=== PATIENT | male | born 1955 | race African-American/Black ===

== ENCOUNTER 2021-12-12 10:32 | Outpatient (REF) | payer MEDICARE, OTHER, SELFPAY ==
[2021-12-12 11:24] LABS: Basophils Percent Auto 0.4 % (0-2); Eosinophils Absolute Auto 0.2 X10*3/uL (0.0-0.4); Eosinophils Percent Auto 2.7 % (0-4); Hemoglobin 12.7 g/dl (14.0-18.0); Imm Gran Abs Auto 0.05 X10*3/uL (0.00-0.03); Imm Gran Pct Auto 0.7 % (0.0-0.4); Lymphocytes Percent Auto 13.9 % (20-40); MANUAL DIFF FLAG SCAN; Mean Corpuscular HGB Conc 30.2 g/dl (31.0-36.0); Mean Corpuscular Hemoglobin 25.7 pg (27.0-33.0); Mean Platelet Volume 9.3 fL (9.4-12.4); Monocytes Absolute Auto 0.6 X10*3/uL (0.1-1.2); Monocytes Percent Auto 8.7 % (2-11); Neutrophils Absolute Auto 5.2 x10*3/uL (2.0-8.3); Neutrophils Percent Auto 73.6 % (45-73); PLT CLUMP 1; Red Blood Count 4.94 X10*6/uL (4.60-5.80); SCAN SMEAR FLAG 1
[2021-12-12 12:07] LABS: Alanine Aminotransferase 28 U/L (0-40); Aspartate Amino Transferase 27 U/L (5-37); Estimated Glomerular Filt Rate > 60
[2021-12-12 12:16] LABS: Platelet Count 244 X10*3/uL (160-400); SLIDE REVIEW VERIFIED; White Blood Count 7.1 X10*3/uL (4.8-10.8)
[2021-12-12 15:00] LABS: Erythrocyte Sedimentation Rate 21 MM/HR (0-15)
== END 2021-12-12 10:33 | disposition home or self-care (01) ==
LOC: HO.LAB 10:32
PROVIDERS: PCP Internal Medicine; Visit Provider Internal Medicine Rheumatology
DX: M05.9 Rheumatoid arthritis with rheumatoid factor, unspecified (principal); Z79.899 Other long term (current) drug therapy
CPT/HCPCS: 36415; 82565; 84450; 84460; 85025; 85652; 86140

== ENCOUNTER 2022-05-03 11:29 | Outpatient (REF) | payer MEDICARE, OTHER, SELFPAY ==
[2022-05-03 13:41] LABS: MANUAL DIFF FLAG NO
[2022-05-03 13:55] LABS: Basophils Percent Auto 0.9 % (0-2); Eosinophils Absolute Auto 0.1 X10*3/uL (0.0-0.4); Eosinophils Percent Auto 2.8 % (0-4); Hematocrit 41.4 % (42.0-52.0); Hemoglobin 12.8 g/dl (14.0-18.0); Imm Gran Abs Auto 0.05 X10*3/uL (0.00-0.03); Imm Gran Pct Auto 1.1 % (0.0-0.4); Lymphocytes Absolute Auto 0.9 X10*3/uL (1.2-4.9); Lymphocytes Percent Auto 20.6 % (20-40); Mean Corpuscular HGB Conc 30.9 g/dl (31.0-36.0); Mean Corpuscular Hemoglobin 26.3 pg (27.0-33.0); Mean Platelet Volume 9.8 fL (9.4-12.4); Monocytes Absolute Auto 0.5 X10*3/uL (0.1-1.2); Monocytes Percent Auto 11.6 % (2-11); Neutrophils Absolute Auto 2.9 x10*3/uL (2.0-8.3); Platelet Count 190 X10*3/uL (160-400); Red Blood Count 4.87 X10*6/uL (4.60-5.80); Red Cell Distribution Width 16.9 % (11.0-16.0); White Blood Count 4.6 X10*3/uL (4.8-10.8)
[2022-05-03 14:50] LABS: Alanine Aminotransferase 22 U/L (0-40); Aspartate Amino Transferase 25 U/L (5-37); C Reactive Protein 0.21 mg/dL (< or = 0.50); Estimated Glomerular Filt Rate > 60
[2022-05-03 15:03] LABS: Erythrocyte Sedimentation Rate 12 MM/HR (0-15)
== END 2022-05-03 11:30 | disposition home or self-care (01) ==
LOC: HO.10HDL 11:29
PROVIDERS: Visit Provider Internal Medicine Rheumatology
DX: M05.9 Rheumatoid arthritis with rheumatoid factor, unspecified (principal); R62.50 Unspecified lack of expected normal physiological development in childhood; Z79.899 Other long term (current) drug therapy
CPT/HCPCS: 36415; 82565; 84450; 84460; 85025; 85652; 86140; 99212

== ENCOUNTER 2022-07-03 07:57 | Outpatient (REF) | payer MEDICARE, OTHER, SELFPAY ==
--- NOTE | ~2022-07-03 | XR_ITS ---
EXAMINATION: RULE OUT BILATERAL HIP AND BILATERAL KNEE. CLINICAL INFORMATION: Bilateral hip pain and knee pain. COMPARISON: None TECHNIQUE: 2 views each hip and 2 views each knee. FINDINGS: Right hip: There is minimal loss of right hip joint space with right periarticular spurring. No visible acute fracture, dislocation or lytic process seen. Left hip: There is moderate periarticular spurring left hip joint with maintained hip joint space. No acute fracture or dislocation seen. There are enthesophytes along the inferior ischium. The soft tissues are normal. Right knee: There is mild loss of medial compartment joint space. The lateral and patellofemoral compartments are maintained normal. Is moderate osteophytes along the superior inferior patella. No loose body seen. No joint effusion. Left knee: There is loss of medial compartment joint space. There is moderate superior and inferior patella spurring. No visible acute fracture or dislocation seen. XR/XR hip LT min 2V IMPRESSION: 1. Mild degenerative changes bilateral hip joints. No visible acute fracture, dislocation or subluxation seen. 2. Mild degenerative changes medial compartment both knees with moderate superior and inferior patellar spurring. No visible acute fracture or dislocation seen. No joint effusion seen in either knee.
--- NOTE | ~2022-07-03 | XR_ITS ---
EXAMINATION: RULE OUT BILATERAL HIP AND BILATERAL KNEE. CLINICAL INFORMATION: Bilateral hip pain and knee pain. COMPARISON: None TECHNIQUE: 2 views each hip and 2 views each knee. FINDINGS: Right hip: There is minimal loss of right hip joint space with right periarticular spurring. No visible acute fracture, dislocation or lytic process seen. Left hip: There is moderate periarticular spurring left hip joint with maintained hip joint space. No acute fracture or dislocation seen. There are enthesophytes along the inferior ischium. The soft tissues are normal. Right knee: There is mild loss of medial compartment joint space. The lateral and patellofemoral compartments are maintained normal. Is moderate osteophytes along the superior inferior patella. No loose body seen. No joint effusion. Left knee: There is loss of medial compartment joint space. There is moderate superior and inferior patella spurring. No visible acute fracture or dislocation seen. XR/XR knee LT 3V IMPRESSION: 1. Mild degenerative changes bilateral hip joints. No visible acute fracture, dislocation or subluxation seen. 2. Mild degenerative changes medial compartment both knees with moderate superior and inferior patellar spurring. No visible acute fracture or dislocation seen. No joint effusion seen in either knee.
--- NOTE | ~2022-07-03 | XR_ITS ---
EXAMINATION: RULE OUT BILATERAL HIP AND BILATERAL KNEE. CLINICAL INFORMATION: Bilateral hip pain and knee pain. COMPARISON: None TECHNIQUE: 2 views each hip and 2 views each knee. FINDINGS: Right hip: There is minimal loss of right hip joint space with right periarticular spurring. No visible acute fracture, dislocation or lytic process seen. Left hip: There is moderate periarticular spurring left hip joint with maintained hip joint space. No acute fracture or dislocation seen. There are enthesophytes along the inferior ischium. The soft tissues are normal. Right knee: There is mild loss of medial compartment joint space. The lateral and patellofemoral compartments are maintained normal. Is moderate osteophytes along the superior inferior patella. No loose body seen. No joint effusion. Left knee: There is loss of medial compartment joint space. There is moderate superior and inferior patella spurring. No visible acute fracture or dislocation seen. XR/XR knee RT 3V IMPRESSION: 1. Mild degenerative changes bilateral hip joints. No visible acute fracture, dislocation or subluxation seen. 2. Mild degenerative changes medial compartment both knees with moderate superior and inferior patellar spurring. No visible acute fracture or dislocation seen. No joint effusion seen in either knee.
--- NOTE | ~2022-07-03 | XR_ITS ---
EXAMINATION: RULE OUT BILATERAL HIP AND BILATERAL KNEE. CLINICAL INFORMATION: Bilateral hip pain and knee pain. COMPARISON: None TECHNIQUE: 2 views each hip and 2 views each knee. FINDINGS: Right hip: There is minimal loss of right hip joint space with right periarticular spurring. No visible acute fracture, dislocation or lytic process seen. Left hip: There is moderate periarticular spurring left hip joint with maintained hip joint space. No acute fracture or dislocation seen. There are enthesophytes along the inferior ischium. The soft tissues are normal. Right knee: There is mild loss of medial compartment joint space. The lateral and patellofemoral compartments are maintained normal. Is moderate osteophytes along the superior inferior patella. No loose body seen. No joint effusion. Left knee: There is loss of medial compartment joint space. There is moderate superior and inferior patella spurring. No visible acute fracture or dislocation seen. XR/XR hip RT min 2V IMPRESSION: 1. Mild degenerative changes bilateral hip joints. No visible acute fracture, dislocation or subluxation seen. 2. Mild degenerative changes medial compartment both knees with moderate superior and inferior patellar spurring. No visible acute fracture or dislocation seen. No joint effusion seen in either knee.
== END 2022-07-03 07:58 | disposition home or self-care (01) ==
LOC: HO.XRAY 07:57
PROVIDERS: PCP Internal Medicine; Visit Provider Internal Medicine Rheumatology
DX: M25.561 Pain in right knee (principal); M25.562 Pain in left knee; M25.552 Pain in left hip; M05.79 Rheumatoid arthritis with rheumatoid factor of multiple sites without organ or systems involvement
CPT/HCPCS: 20610; 36415; 73502; 73562; 82565; 84450; 84460; 85025; 85652; 86140; 99212

== ENCOUNTER 2022-07-03 08:50 | Outpatient (REF) | payer MEDICARE, OTHER, SELFPAY ==
[2022-07-03 10:31] LABS: MANUAL DIFF FLAG NO
[2022-07-03 10:33] LABS: Basophils Percent Auto 0.7 % (0-2); Eosinophils Absolute Auto 0.1 X10*3/uL (0.0-0.4); Hematocrit 41.7 % (42.0-52.0); Hemoglobin 13.1 g/dl (14.0-18.0); Imm Gran Abs Auto 0.04 X10*3/uL (0.00-0.03); Imm Gran Pct Auto 0.7 % (0.0-0.4); Lymphocytes Percent Auto 18.8 % (20-40); Mean Corpuscular HGB Conc 31.4 g/dl (31.0-36.0); Mean Corpuscular Hemoglobin 27.1 pg (27.0-33.0); Mean Corpuscular Volume 86.2 fL (80.0-98.0); Mean Platelet Volume 11.4 fL (9.4-12.4); Monocytes Absolute Auto 0.5 X10*3/uL (0.1-1.2); Monocytes Percent Auto 8.9 % (2-11); NRBC Pct Auto 0.6 /100WBC (0.0-0.2); Neutrophils Absolute Auto 3.7 x10*3/uL (2.0-8.3); Neutrophils Percent Auto 68.9 % (45-73); Platelet Count 165 X10*3/uL (160-400); Red Blood Count 4.84 X10*6/uL (4.60-5.80); White Blood Count 5.4 X10*3/uL (4.8-10.8)
[2022-07-03 11:17] LABS: Erythrocyte Sedimentation Rate 12 MM/HR (0-15)
[2022-07-03 11:40] LABS: Alanine Aminotransferase 18 U/L (0-40); Aspartate Amino Transferase 22 U/L (5-37); C Reactive Protein 0.34 mg/dL (< or = 0.50); Estimated Glomerular Filt Rate > 60
== END 2022-07-03 08:51 | disposition home or self-care (01) ==
LOC: HO.10HDL 08:50
PROVIDERS: Visit Provider Internal Medicine Rheumatology
DX: Z13.89 Encounter for screening for other disorder (principal)
CPT/HCPCS: 36415; 82565; 84450; 84460; 85025; 85652; 86140; 99212

== ENCOUNTER 2022-08-28 11:32 | Outpatient (REF) | payer MEDICARE, OTHER, SELFPAY ==
[2022-08-28 11:53] LABS: MANUAL DIFF FLAG NO
[2022-08-28 13:13] LABS: Basophils Percent Auto 0.5 % (0-2); Eosinophils Absolute Auto 0.1 X10*3/uL (0.0-0.4); Eosinophils Percent Auto 1.8 % (0-4); Hematocrit 43.6 % (42.0-52.0); Hemoglobin 13.6 g/dl (14.0-18.0); Imm Gran Abs Auto 0.06 X10*3/uL (0.00-0.03); Lymphocytes Absolute Auto 0.9 X10*3/uL (1.2-4.9); Lymphocytes Percent Auto 14.9 % (20-40); Mean Corpuscular HGB Conc 31.2 g/dl (31.0-36.0); Mean Corpuscular Hemoglobin 26.5 pg (27.0-33.0); Mean Platelet Volume 9.1 fL (9.4-12.4); Monocytes Absolute Auto 0.6 X10*3/uL (0.1-1.2); Monocytes Percent Auto 10.4 % (2-11); Neutrophils Absolute Auto 4.3 x10*3/uL (2.0-8.3); Neutrophils Percent Auto 71.4 % (45-73); Platelet Count 227 X10*3/uL (160-400); Red Blood Count 5.13 X10*6/uL (4.60-5.80); Red Cell Distribution Width 15.9 % (11.0-16.0)
[2022-08-28 13:40] LABS: Alanine Aminotransferase 19 U/L (0-40); Aspartate Amino Transferase 20 U/L (5-37); C Reactive Protein 0.14 mg/dL (< or = 0.50); Estimated Glomerular Filt Rate > 60
[2022-08-28 13:53] LABS: Erythrocyte Sedimentation Rate 7 MM/HR (0-15)
== END 2022-08-28 11:33 | disposition home or self-care (01) ==
LOC: HO.LAB 11:32
PROVIDERS: Internal Medicine Rheumatology; PCP Internal Medicine; Visit Provider Nurse Practitioner Acute Care
DX: M05.79 Rheumatoid arthritis with rheumatoid factor of multiple sites without organ or systems involvement (principal); Z79.899 Other long term (current) drug therapy
CPT/HCPCS: 36415; 82565; 84450; 84460; 85025; 85652; 86140

== ENCOUNTER → 2022-08-30 09:13 | Outpatient (BNVA) | payer MEDICARE, OTHER, SELFPAY | PROVIDERS: PCP Internal Medicine; Visit Provider Internal Medicine Rheumatology | DX: M05.79 Rheumatoid arthritis with rheumatoid factor of multiple sites without organ or systems involvement (principal); Z79.631 Long term (current) use of antimetabolite agent | CPT/HCPCS: 99212 ==

== ENCOUNTER 2023-01-01 08:16 | Outpatient (REF) | payer MEDICARE, OTHER, SELFPAY ==
[2023-01-01 08:29] LABS: MANUAL DIFF FLAG NO
[2023-01-01 08:42] LABS: Basophils Percent Auto 0.3 % (0-2); Eosinophils Absolute Auto 0.2 X10*3/uL (0.0-0.4); Eosinophils Percent Auto 2.6 % (0-4); Hematocrit 40.1 % (42.0-52.0); Hemoglobin 12.6 g/dl (14.0-18.0); Imm Gran Abs Auto 0.09 X10*3/uL (0.00-0.03); Imm Gran Pct Auto 1.4 % (0.0-0.4); Lymphocytes Absolute Auto 0.8 X10*3/uL (1.2-4.9); Lymphocytes Percent Auto 13.5 % (20-40); Mean Corpuscular HGB Conc 31.4 g/dl (31.0-36.0); Mean Corpuscular Hemoglobin 27.2 pg (27.0-33.0); Mean Corpuscular Volume 86.6 fL (80.0-98.0); Mean Platelet Volume 9.2 fL (9.4-12.4); Monocytes Absolute Auto 0.6 X10*3/uL (0.1-1.2); Monocytes Percent Auto 8.8 % (2-11); Neutrophils Absolute Auto 4.6 x10*3/uL (2.0-8.3); Neutrophils Percent Auto 73.4 % (45-73); Platelet Count 203 X10*3/uL (160-400); Red Blood Count 4.63 X10*6/uL (4.60-5.80); Red Cell Distribution Width 15.9 % (11.0-16.0); White Blood Count 6.2 X10*3/uL (4.8-10.8)
[2023-01-01 08:44] LABS: NRBC Pct Auto 1.3 /100WBC (0.0-0.2)
[2023-01-01 09:17] LABS: Alanine Aminotransferase 26 U/L (0-40); Aspartate Amino Transferase 24 U/L (5-37); C Reactive Protein 0.43 mg/dL (< or = 0.50); Estimated Glomerular Filt Rate > 60
[2023-01-01 09:22] LABS: Erythrocyte Sedimentation Rate 7 MM/HR (0-15)
== END 2023-01-01 08:17 | disposition home or self-care (01) ==
LOC: HO.LAB 08:16
PROVIDERS: Visit Provider Internal Medicine Rheumatology
DX: M05.79 Rheumatoid arthritis with rheumatoid factor of multiple sites without organ or systems involvement (principal); Z79.899 Other long term (current) drug therapy
CPT/HCPCS: 36415; 82565; 84450; 84460; 85025; 85652; 86140; 99212

== ENCOUNTER 2023-01-01 08:40 | Outpatient (AMB) | payer MEDICARE, OTHER, SELFPAY ==
[2023-01-01 08:42] VITALS: BP 136/78; PULSE 67; RESP 17; TEMP 36.6; O2SAT 98; BMI 27.6
--- NOTE | 2023-01-01 08:42 | MHC.OFFVIS ---
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 The patient is nonverbal. The FU reports that the patient still seems to move more slowly than before. He does not really seem to be in pain. At his daycare they have required him to come in a wheelchair so they can transport him more easily. He does more walking at home and does not need a wheelchair at home. He remains on methotrexate 20 mg weekly, folic acid 1 mg daily, and Xeljanz 5 mg twice a day. [facility] Medical History Hip pain, bilateral Hypercholesteremia Knee pain, bilateral Surgical History Hx of skin graft Family History Mother Lung cancer Father History of agent [place] exposure Maternal Grandmother Myocardial infarct Social History Household Members Other:: lives with uncle Housing: House Alcohol intake: never Patient Tobacco Use Status: Never used Tobacco Review of Systems Const Details: Family notes he moves more slowly than previously. Negative for appetite change, weight change, fever, chills, malaise and fatigue Eyes Details: Negative for vision change, dry eyes,headaches and dizziness ENT Details: Negative for hearing change, tinnitus, oral ulcer, nose bleeds and oral dryness. Card Details: Negative chest pain, edema and syncope Resp Details: Negative for SOB, cough and wheezing GI Details: Negative indigestion/heartburn, nausea, abdominal pain, bowel changes, diarrhea, constipation and bloody stool. Skin/Breast Details: Negative for itching, rash, hives, Raynaud's symptoms, sun sensitivity, and skin cancer Neuro Details: He walks and performs daily functions more slowly. Negative for epilepsy, palsy, stroke, changes in speech, tingling and weakness Psych Details: Negative for anxiety, depression and stress Chato/Lymph Details: Negative for excessive bruising or bleeding. Physical Exam Vital Signs: Last Vital Signs Temp 97.8 F 01/01/23 08:42 Pulse 67 01/01/23 08:42 Resp 17 01/01/23 08:42 BP 136/78 01/01/23 08:42 Pulse Ox 98 01/01/23 08:42 Oxygen Delivery Method Room Air 01/01/23 08:42 BMI result Body Mass Index 27.6 APPEARANCE: Patient in no acute distress EYES no redness, pupils equal and reactive to light, eyelids normal EXTREMITIES: No edema, no calf tenderness, normal peripheral pulses. NEURO: Oriented and alert x3. No focal weakness. Reflexes symmetric. When asked to walk he takes very small steps in the ER slow. Once he gets warmed up he could move quicker. He does not appear to be in pain. SKIN: No inflammatory or neoplastic lesions. Normal color and turgor JOINT EXAM: .?? Cervical Spine:.? Slight decrease in range of motion but without apparent pain.? No tenderness. Thoracic Spine:.? No scoliosis.? No tenderness on palpation. Lumbar Spine:.? Alignment normal.? Full range of motion without pain, no tenderness. Chest Wall:.? No tenderness, swelling, increased warmth or erythema. Hands:? Right:? Pain-free range of motion.? There may be some slight thickening in the 1st 3 MCP joints but the joints in general in the hand do not have any tenderness or swelling.? There is no triggering of the flexor tendons or thenar atrophy.? Left:? Normal pain-free range of motion.? Slight thickening at the 2nd and 3rd MCP joints without tenderness.? Other joints have no tenderness or swelling.? No flexor tendon triggering or thenar atrophy. Wrists:.? Flexion and extension seem intact a 60 degrees without pain.? No areas of swelling or tenderness.? No increased warmth or erythema. Elbows: Normal pain-free range of motion without tenderness, swelling, increased warmth or erythema. Shoulders:?? Full range of motion without pain. No tenderness, weakness, swelling, increased warmth or erythema. Hips:.? Some decrease in the extremes of external internal rotation but no apparent pain with motion. Hip bursa:.? No tenderness. Knees:.?? Right: He has slight resistance to attempts at full extension or flexion.? He does not really say he has pain.? There is no apparent tenderness or extra fluid in the knee no redness or warmth.? There is mild patellofemoral crepitus.? Left:? Slight resistance to full extension.? He does not really complain of pain with motion.? There is minimal patellofemoral crepitus without effusion, medial compartment tenderness, swelling, increased warmth or erythema.? Ankles:.? Normal pain-free range of motion without tenderness, swelling, increased warmth or erythema. Feet:.? Normal pain-free range of motion without tenderness, swelling, increased warmth or erythema. Tender points:? No tenderness to digital palpation at the occiput, trapezius, second rib, lateral epicondyle, knees, greater trochanter and gluteal area bilaterally. ? Results Reviewed Results Reviewed: Laboratory Tests 01/01/23 08:27 WBC 6.2 Hgb 12.6 L Assessment & Plan Assessment & Plan (1) Long-term use of immunosuppressant medication: Code(s): Z79.899 - Other care home (current) drug therapy (2) Seropositive rheumatoid arthritis of multiple joints: Comment: Onset early 2017: RF, CCP positive with polyarticular involvement 10/02: Prednisone started 11/01: methotrexate added 03/04: Humira added 10/03: Xeljanz in place or Humira Code(s): M05.79 - Rheumatoid arthritis with rheumatoid factor of multiple sites without organ or systems involvement Plan Rheumatoid arthritis with not much on exam to suggest active synovitis with this current regimen. He does move more slowly and seems to limit his motion. When I assist him with motions he does not seem to have pain pushing beyond his previous limits. After stretching with my assistance he is able to have better range of motion. I think likely he is just having some muscle stiffness and should be encouraged to do [id number] exercises. I talked with the nephew about having him go to physical therapy but the nephew wants to try to do some exercises at home. I demonstrated some balance exercises to do with him holding onto a chair or a sink. Passive stretching should be followed by instructions to move the arms and legs more freely. They will try to engage in exercise program through [employer]. We are waiting the rest of his labs today but presumably if they are okay we will continue with current regimen. After he left the office I did call the home and discuss it with his other specialty person, his niece. I indicated that there was a possibility the Wilfredy could be giving him some bradykinesia. I think they should review with psychiatry the possibility of reducing the dose, stopping it or trying a different agent. A recheck in 4 months would be reasonable. Coding Level of Care Code Est Pt Level 3 (90741) Diagnoses Long-term use of immunosuppressant medication Z79.899 Seropositive rheumatoid arthritis of multiple joints M05.79
== END 2023-01-01 09:18 | disposition home or self-care (01) ==
PROVIDERS: PCP Internal Medicine; Visit Provider Internal Medicine Rheumatology
DX: Z79.899 Other long term (current) drug therapy (principal); M05.79 Rheumatoid arthritis with rheumatoid factor of multiple sites without organ or systems involvement
CPT/HCPCS: 99213

== ENCOUNTER 2023-05-01 09:12 | Outpatient (AMB) | payer MEDICARE, OTHER, SELFPAY ==
--- NOTE | 2023-05-01 09:19 | MHC.OFFVIS ---
Intake Vital Signs 05/01/23 09:20 Height 5 ft 7 in Weight 171 lb 11.841 oz BMI 26.9 BP 110/64 Blood Pressure Location Lt brachial Position Sitting Pulse 78 Pulse Source Pulse Oximeter Temp 97.8 F Temp Source Skin Pulse Oximetry (%) 95 Oxygen Delivery Method Room Air Intake Visit Reasons: ra Intake Note: Patient presents today to follow up on RA. Last seen by Dr. Barillas on 01/01/23. Uncle and legal guardian reports patient is moving slower. 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 He is here with his nephew, with whom he lives. At the last visit we noted decreased physical activity. It was not clear that this was clearly related to any joint swelling or pain. He did not seem to improve with a few day course of prednisone. The patient is basically nonverbal so it is hard to get a story out of him of increased or decreased discomfort. The patient is back to attending his daycare 5 days a week. That does provide some respite for the family. The patient remains on Xeljanz 5 mg twice a day, methotrexate 20 mg once a week, and folic acid 1 mg daily. I did suggest to the family to check with the psychiatric provider to see if he needed to remain on his psychiatric meds. He is now on Abilify currently at 5 mg once daily. The nephew says it was reduced from b.i.d.. According to the nephew he does not think there was any clear improvement in his movement and no clear worsening of any behavioral issues. We will therefore stay with current treatment. A return visit at 4 months is recommended with lab work before that visit. [facility] Medical History Hip pain, bilateral Hypercholesteremia Knee pain, bilateral Surgical History Hx of skin graft Family History Mother Lung cancer Father History of agent [place] exposure Maternal Grandmother Myocardial infarct Social History (Reviewed 05/01/23 @ 09:24 by FIDELIA Felix Household Members Other:: lives with uncle Housing: House Alcohol intake: never Patient Tobacco Use Status: Never used Tobacco Review of Systems Const Details: Some decrement in activity level this year but it is not appearing to be a progressive issue. Negative for appetite change, weight change, fever, chills, malaise and fatigue Eyes Details: Negative for vision change, dry eyes,headaches and dizziness ENT Details: Negative for hearing change, tinnitus, oral ulcer, nose bleeds and oral dryness. Card Details: Negative chest pain, edema and syncope Resp Details: Negative for SOB, cough and wheezing GI Details: Negative indigestion/heartburn, nausea, abdominal pain, bowel changes, diarrhea, constipation and bloody stool. Skin/Breast Details: Negative for itching, rash, hives, Raynaud's symptoms, sun sensitivity, and skin cancer Psych Details: Negative for anxiety, depression and stress Chato/Lymph Details: Negative for excessive bruising or bleeding. Physical Exam Vital Signs: Last Vital Signs Temp 97.8 F 05/01/23 09:20 Pulse 78 05/01/23 09:20 BP 110/64 05/01/23 09:20 Pulse Ox 95 05/01/23 09:20 Oxygen Delivery Method Room Air 05/01/23 09:20 BMI result Body Mass Index 26.9 APPEARANCE: Patient in no acute distress EYES no redness, pupils equal and reactive to light, eyelids normal Abdomen: Normal bowel sounds. No tenderness, mass or organomegaly. EXTREMITIES: No edema, no calf tenderness, normal peripheral pulses. NEURO: Oriented and alert x3. No focal weakness. Reflexes symmetric. When asked to walk he takes very small steps. He does not appear to be in pain. SKIN: No inflammatory or neoplastic lesions. Normal color and turgor JOINT EXAM: .?? Cervical Spine:.? Slight decrease in range of motion but without apparent pain.? No tenderness. Thoracic Spine:.? No scoliosis.? No tenderness on palpation. Lumbar Spine:.? Alignment normal.? Full range of motion without pain, no tenderness. Chest Wall:.? No tenderness, swelling, increased warmth or erythema. Hands:? Right:? Pain-free range of motion.? There may be some slight thickening in the 1st 3 MCP joints but the joints in general in the hand do not have any tenderness or swelling.? There is no triggering of the flexor tendons or thenar atrophy.? Left:? Normal pain-free range of motion.? Slight thickening at the 2nd and 3rd MCP joints without tenderness.? Other joints have no tenderness or swelling.? No flexor tendon triggering or thenar atrophy. Wrists:.? Flexion and extension seem intact a 60 degrees without pain.? No areas of swelling or tenderness.? No increased warmth or erythema. Elbows: Left: He flexes normally without any evidence for discomfort but seems to lack about 10 degrees of full extension. This could be some voluntary motion on his part. There is no clear areas of swelling or tenderness. Right: Normal pain-free range of motion without tenderness, swelling, increased warmth or erythema. Shoulders:?? Full range of motion without pain. No tenderness, weakness, swelling, increased warmth or erythema. Hips:.? Some decrease in the extremes of external internal rotation but no apparent pain with motion. Hip bursa:.? No tenderness. Knees:.?? Right: He has slight resistance to attempts at full extension or flexion.? He does not really say he has pain.? There is no apparent tenderness or extra fluid in the knee no redness or warmth.? There is mild patellofemoral crepitus.? Left:? Slight resistance to full extension.? He does not really complain of pain with motion.? There is minimal patellofemoral crepitus without effusion, medial compartment tenderness, swelling, increased warmth or erythema.? Ankles:.? Normal pain-free range of motion without tenderness, swelling, increased warmth or erythema. Feet:? Normal pain-free range of motion without tenderness, swelling, increased warmth or erythema. Tender points:? No tenderness to digital palpation at the occiput, trapezius, second rib, lateral epicondyle, knees, greater trochanter and gluteal area bilaterally. ? ? Results Reviewed Results Reviewed: Laboratory Tests 01/01/23 08:27 WBC 6.2 Hgb 12.6 L ESR 7 Creatinine 1.01 AST 24 ALT 26 C-Reactive Protein 0.43 Assessment & Plan Assessment & Plan (1) Long-term use of immunosuppressant medication: Code(s): Z79.899 - Other correction (current) drug therapy (2) Developmental delay, moderate: Comment: Non verbal Code(s): R62.50 - Unspecified lack of expected normal physiological development in childhood (3) Seropositive rheumatoid arthritis of multiple joints: Comment: Onset early 2017: RF, CCP positive with polyarticular involvement 10/02: Prednisone started 11/01: methotrexate added 03/04: Humira added 10/03: Xeljanz in place of Humira Code(s): M05.79 - Rheumatoid arthritis with rheumatoid factor of multiple sites without organ or systems involvement Plan Rheumatoid arthritis with no apparent synovitis noted on exam. It is very difficult to confirm joint tenderness since he is not able to respond negatively or positively to pressure over the joints. He seems to be tolerating his medications so I think they should be continued as above. The bradykinesia I noted before I think is a bit better. Whether that is a function just of his level of fatigue and or stiffness with the reduction in the Abilify does made a difference is hard to say. It is also possible he slowing down as a result of aging and his underlying neurologic impairment. I encouraged the family to encourage him to be active and walk at home as well as at the daycare unit. He will have lab work before the next visit in about 4 months. Orders: Orders Alanine Aminotransferase Today M05.79 - Rheumatoid arthritis with rheumatoid factor of multiple sites without organ or systems involvement, Z79.899 - Other correction (current) drug therapy Aspartate Amino Transferase Today M05.79 - Rheumatoid arthritis with rheumatoid factor of multiple sites without organ or systems involvement, Z79.899 - Other terminal block assembler (current) drug therapy Creatinine Today M05.79 - Rheumatoid arthritis with rheumatoid factor of multiple sites without organ or systems involvement, Z79.899 - Other correction (current) drug therapy Erythrocyte Sedimentation Rate 1 Month M05.79 - Rheumatoid arthritis with rheumatoid factor of multiple sites without organ or systems involvement C Reactive Protein 1 Month M05.79 - Rheumatoid arthritis with rheumatoid factor of multiple sites without organ or systems involvement Aspartate Amino Transferase Today M05.79 - Rheumatoid arthritis with rheumatoid factor of multiple sites without organ or systems involvement, Z79.899 - Other terminal block assembler (current) drug therapy Erythrocyte Sedimentation Rate Today M05.79 - Rheumatoid arthritis with rheumatoid factor of multiple sites without organ or systems involvement C Reactive Protein Today M05.79 - Rheumatoid arthritis with rheumatoid factor of multiple sites without organ or systems involvement Complete Blood Count Auto Diff Today M05.79 - Rheumatoid arthritis with rheumatoid factor of multiple sites without organ or systems involvement, Z79.899 - Other correction (current) drug therapy Alanine Aminotransferase Today M05.79 - Rheumatoid arthritis with rheumatoid factor of multiple sites without organ or systems involvement, Z79.899 - Other correction (current) drug therapy Complete Blood Count Auto Diff 1 Month M05.79 - Rheumatoid arthritis with rheumatoid factor of multiple sites without organ or systems involvement, Z79.899 - Other terminal block assembler (current) drug therapy Creatinine Today M05.79 - Rheumatoid arthritis with rheumatoid factor of multiple sites without organ or systems involvement, Z79.899 - Other terminal block assembler (current) drug therapy Medications: Refilled folic acid 1 mg PO DAILY 90 tabs 3RF M05.79 - Rheumatoid arthritis with rheumatoid factor of multiple sites without organ or systems involvement methotrexate sodium 20 mg (8 x 2.5 mg) PO QWEEK 96 tabs 1RF M05.9 - Rheumatoid arthritis with rheumatoid factor, unspecified Coding Level of Care Code Est Pt Level 3 (03933) Diagnoses Long-term use of immunosuppressant medication Z79.899 Developmental delay, moderate R62.50 Seropositive rheumatoid arthritis of multiple joints M05.79
[2023-05-01 09:20] VITALS: BP 110/64; PULSE 78; TEMP 36.6; O2SAT 95; BMI 26.9
== END 2023-05-01 09:46 | disposition home or self-care (01) ==
PROVIDERS: PCP Internal Medicine; Visit Provider Internal Medicine Rheumatology
DX: Z79.899 Other long term (current) drug therapy (principal); R62.50 Unspecified lack of expected normal physiological development in childhood; M05.79 Rheumatoid arthritis with rheumatoid factor of multiple sites without organ or systems involvement
CPT/HCPCS: 99213

== ENCOUNTER → 2023-05-01 09:12 | Outpatient (BNVA) | payer MEDICARE, OTHER, SELFPAY | PROVIDERS: PCP Internal Medicine; Visit Provider Internal Medicine Rheumatology ==

== ENCOUNTER 2023-05-01 09:52 | Outpatient (REF) | payer MEDICARE, OTHER, SELFPAY ==
[2023-05-01 10:29] LABS: MANUAL DIFF FLAG NO
[2023-05-01 10:39] LABS: Basophils Percent Auto 0.6 % (0-2); Eosinophils Absolute Auto 0.1 X10*3/uL (0.0-0.4); Eosinophils Percent Auto 1.7 % (0-4); Hematocrit 43.6 % (42.0-52.0); Hemoglobin 13.6 g/dl (14.0-18.0); Imm Gran Abs Auto 0.05 X10*3/uL (0.00-0.03); Imm Gran Pct Auto 1.1 % (0.0-0.4); Lymphocytes Absolute Auto 0.9 X10*3/uL (1.2-4.9); Lymphocytes Percent Auto 19.5 % (20-40); Mean Corpuscular HGB Conc 31.2 g/dl (31.0-36.0); Mean Corpuscular Hemoglobin 26.7 pg (27.0-33.0); Mean Corpuscular Volume 85.5 fL (80.0-98.0); Mean Platelet Volume 9.4 fL (9.4-12.4); Monocytes Absolute Auto 0.7 X10*3/uL (0.1-1.2); Monocytes Percent Auto 13.8 % (2-11); Neutrophils Percent Auto 63.3 % (45-73); Platelet Count 171 X10*3/uL (160-400); Red Cell Distribution Width 15.6 % (11.0-16.0); White Blood Count 4.7 X10*3/uL (4.8-10.8)
[2023-05-01 10:47] LABS: Alanine Aminotransferase 17 U/L (0-40); Aspartate Amino Transferase 21 U/L (5-37); C Reactive Protein 0.22 mg/dL (< or = 0.50); Estimated Glomerular Filt Rate > 60
[2023-05-01 11:17] LABS: Erythrocyte Sedimentation Rate 5 MM/HR (0-15)
== END 2023-05-01 09:53 | disposition home or self-care (01) ==
LOC: HO.10HDL 09:52
PROVIDERS: Visit Provider Internal Medicine Rheumatology
DX: M05.79 Rheumatoid arthritis with rheumatoid factor of multiple sites without organ or systems involvement (principal); Z79.899 Other long term (current) drug therapy
CPT/HCPCS: 36415; 82565; 84450; 84460; 85025; 85652; 86140; 99212

== ENCOUNTER 2023-08-08 09:16 | Outpatient (AMB) | payer MEDICARE, OTHER, SELFPAY ==
--- NOTE | 2023-08-08 10:00 | AM.OFFWIN_ITS ---
Intake Vital Signs 08/08/23 10:01 Height 5 ft 7 in Weight 172 lb BMI 26.9 BP 140/90 H Blood Pressure Location Lt brachial Position Sitting Pulse 82 Pulse Source Pulse Oximeter Temp 97.0 F Temp Source Temporal Artery Scan Pulse Oximetry (%) 96 Oxygen Delivery Method Room Air Intake Visit Reasons: EP clearance for -Covid test [id number] Intake Note: pt is here today for clearance for COVID Patient Tobacco Use Status: Never used Tobacco Allergies No Known Allergies Allergy (Mild, Verified 08/08/23 10:04) NKA Do you need a note to return to daycare/school/sports/work: No HPI EP clearance for -Covid test [id number] HPI Details This is a 67-year-old male patient who presents today with his uncle, Brandon, who is his legal guardian. The patient was diagnosed with COVID on 07/27. He was subsequently treated by [facility] providers with Augmentin for a possible pneumonia. He is completing his antibiotic course today, and feels much improved. He denies any difficulty breathing or shortness of breath. Denies cough. Denies any fever/chills. He attends the adult daycare program at [facility], and requires a note clearing him to return to the program. [facility] Medical History Hip pain, bilateral Knee pain, bilateral Hypercholesteremia Surgical History Hx of skin graft Family History Mother Lung cancer Father History of agent [place] exposure Maternal Grandmother Myocardial infarct Social History Household Members Other:: lives with uncle Housing: House Alcohol intake: never Patient Tobacco Use Status: Never used Tobacco Review of Systems Const All systems reviewed & are unremarkable except as noted in HPI and below Physical Exam Vital Signs: Last Vital Signs Temp 97.0 F 08/08/23 10:01 Pulse 82 08/08/23 10:01 BP 140/90 H 08/08/23 10:01 Pulse Ox 96 08/08/23 10:01 Oxygen Delivery Method Room Air 08/08/23 10:01 BMI result Body Mass Index 26.9 Const General: cooperative Limitations: behavioral limitations HEENT Head: Yes normal to inspection Neck Neck: Yes no lymphadenopathy Resp Effort & Inspection: normal respiratory effort and able to speak in complete sentences Auscultation: clear to auscultation bilaterally Cardio Palpation: normal PMI Rate: regular rate Rhythm: regular rhythm Skin General skin exam: no rashes or lesions noted Extrem General: Yes capillary refill normal and Yes no clubbing, cyanosis or edema Psych Appearance: grossly normal Mental Status: mental status grossly normal Speech and movement: Normal speech and movement present Assessment & Plan Assessment & Plan (1) COVID-19: Code(s): U07.1 - COVID-19 Plan: Patient is now 12 days status post positive COVID test. Symptoms have resolved. He was also prescribed antibiotics for question pneumonia, which he is completing today. Assessment is unremarkable. I have provided him with a note to return to his day program. All questions were answered and patient and legal guardian present at visit agree to plan. Coding Level of Care Code Est Pt Level 3 (59314) Diagnoses COVID-19 U07.1
[2023-08-08 10:01] VITALS: BP 140/90; PULSE 82; TEMP 36.1; O2SAT 96; BMI 26.9
== END 2023-08-08 10:34 | disposition home or self-care (01) ==
PROVIDERS: PCP Internal Medicine; Visit Provider Nurse Practitioner Family
DX: U07.1 COVID-19 (principal)
CPT/HCPCS: 99213

== ENCOUNTER 2023-08-24 09:44 | Outpatient (REF) | payer MEDICARE, OTHER, SELFPAY ==
[2023-08-24 10:04] LABS: MANUAL DIFF FLAG NO
[2023-08-24 10:18] LABS: Basophils Percent Auto 0.6 % (0-2); Eosinophils Absolute Auto 0.2 X10*3/uL (0.0-0.4); Eosinophils Percent Auto 3.9 % (0-4); Hematocrit 38.3 % (42.0-52.0); Imm Gran Abs Auto 0.08 X10*3/uL (0.00-0.03); Imm Gran Pct Auto 1.6 % (0.0-0.4); Lymphocytes Absolute Auto 0.5 X10*3/uL (1.2-4.9); Lymphocytes Percent Auto 10.8 % (20-40); Mean Corpuscular HGB Conc 31.3 g/dl (31.0-36.0); Mean Corpuscular Hemoglobin 26.5 pg (27.0-33.0); Mean Corpuscular Volume 84.5 fL (80.0-98.0); Mean Platelet Volume 9.2 fL (9.4-12.4); Monocytes Absolute Auto 0.5 X10*3/uL (0.1-1.2); Neutrophils Absolute Auto 3.5 x10*3/uL (2.0-8.3); Neutrophils Percent Auto 72.1 % (45-73); Platelet Count 219 X10*3/uL (160-400); Red Blood Count 4.53 X10*6/uL (4.60-5.80); Red Cell Distribution Width 17.7 % (11.0-16.0); White Blood Count 4.9 X10*3/uL (4.8-10.8)
[2023-08-24 11:06] LABS: Erythrocyte Sedimentation Rate 13 MM/HR (0-15)
[2023-08-24 11:33] LABS: Alanine Aminotransferase 24 U/L (0-40); Aspartate Amino Transferase 25 U/L (5-37); C Reactive Protein 0.17 mg/dL (< or = 0.50); Estimated Glomerular Filt Rate 56
== END 2023-08-24 09:45 | disposition home or self-care (01) ==
LOC: HO.LAB 09:44
PROVIDERS: PCP Internal Medicine; Visit Provider Internal Medicine Rheumatology
DX: M05.79 Rheumatoid arthritis with rheumatoid factor of multiple sites without organ or systems involvement (principal); Z79.899 Other long term (current) drug therapy
CPT/HCPCS: 36415; 82565; 84450; 84460; 85025; 85652; 86140

== ENCOUNTER 2023-08-28 08:43 | Outpatient (AMB) | payer MEDICARE, OTHER, SELFPAY ==
--- NOTE | 2023-08-28 09:04 | MHC.OFFVIS ---
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 Barillas, presents today for follow up and test results. Reports current infection on feet. Lithographic Proofer Required: No Accompanied by: Uncle, legal guardian Allergies No Known Allergies Allergy (Mild, Verified 08/28/23 09:07) NKA HPI HPI Comments History of Present Illness Details Mr. Haque 67-year-old male returns for follow of his rheumatoid arthritis. He is here with his nephew, with whom he lives. The patient is developmentally delayed, with diminished understanding of his disease process and so it is hard to get a story out of him of increased or decreased discomfort. The patient is back to attending his daycare 5 days a week. That does provide some respite for the family. The patient remains on Xeljanz 5 mg twice a day, methotrexate 20 mg once a week, and folic acid 1 mg daily without known side effects. Historically he has had gardner to his lower extremities from hot water for which she was treated with skin graft. The nephew now reports, beginning about 2 weeks ago, the skin graft is failing, peeling back on bilateral feet. He was seen at the ER and given antibiotics and has a scheduled appointment with a plastic surgeon. The nephew is caring for the wound with saline, Xeroform and bandages. He has not seen his primary care or wound care. He denies signs and symptoms of infection, oozing/purulence, blisters, fevers. Prior to this happening he had a cold. [facility] Medical History (Updated 08/28/23 @ 12:14 by CARMELLA Ramos) Skin graft failure Hip pain, bilateral Knee pain, bilateral Hypercholesteremia Surgical History Hx of skin graft Family History Mother Lung cancer Father History of agent [place] exposure Maternal Grandmother Myocardial infarct Social History (Reviewed 08/28/23 @ 09:07 by FIDELIA Flowers Household Members Other:: lives with uncle Housing: House Alcohol intake: never Patient Tobacco Use Status: Never used Tobacco Review of Systems Const All systems reviewed & are unremarkable except as noted in HPI and below Physical Exam Vital Signs: Last Vital Signs Temp 97 F 08/28/23 09:05 Pulse 67 08/28/23 09:05 BP 136/70 08/28/23 09:05 Pulse Ox 97 08/28/23 09:05 Oxygen Delivery Method Room Air 08/28/23 09:05 BMI result Body Mass Index 26.4 APPEARANCE: Patient in no acute distress common groomed, nor EYES no redness, eyelids normal HEART:? Regular rhythm, S1-S2 heard, no murmurs, rubs or gallops. LUNG:? Clear to percussion and auscultation EXTREMITIES: No edema, no calf tenderness, normal peripheral pulses. NEURO: Oriented and alert x3. No focal weakness. Reflexes symmetric. When asked to walk he takes very small steps. He does not appear to be in pain. SKIN: No inflammatory or neoplastic lesions. Normal color and turgor JOINT EXAM: .?? Cervical Spine:.? Slight decrease in range of motion but without apparent pain.? No tenderness. Thoracic Spine:.? No scoliosis.? No tenderness on palpation. Lumbar Spine:.? Alignment normal.? Full range of motion without pain, no tenderness. Chest Wall:.? No tenderness, swelling, increased warmth or erythema. Hands:? Right:? Pain-free range of motion.? There thickening in the 1st 3 MCP joints but the joints in general in the hand do not have any tenderness or swelling.? There is no triggering of the flexor tendons or thenar atrophy.? Left:? Normal pain-free range of motion.? Slight thickening at the 2nd and 3rd MCP joints without tenderness.? Other joints have no tenderness or swelling.? No flexor tendon triggering or thenar atrophy. Wrists:.? Flexion and extension seem intact a 60 degrees without pain.? No areas of swelling or tenderness.? No increased warmth or erythema. Elbows: Left: He flexes normally without any evidence for discomfort but seems to lack about 10 degrees of full extension. This could be some voluntary motion on his part. There is no clear areas of swelling or tenderness. Right: Normal pain-free range of motion without tenderness, swelling, increased warmth or erythema. Shoulders:?? Full range of motion without pain. No tenderness, weakness, swelling, increased warmth or erythema. but some mild discomfort on the right with overhead raise. Hips:.? Some decrease in the extremes of external internal rotation but no apparent pain with motion. Hip bursa:.? No tenderness. Knees:.?? Right: He has slight resistance to attempts at full extension or flexion.? He does not really say he has pain.? There is no apparent tenderness or extra fluid in the knee no redness or warmth.? There is mild patellofemoral crepitus.? Left:? Slight resistance to full extension.? He does not really complain of pain with motion.? There is minimal patellofemoral crepitus without effusion, medial compartment tenderness, swelling, increased warmth or erythema.? Ankles:.? Normal pain-free range of motion without tenderness, swelling, increased warmth or erythema. Feet:? Wrapped with gauze dressing bilaterally Tender points:? No tenderness to digital palpation at the occiput, trapezius, second rib, lateral epicondyle, knees, greater trochanter and gluteal area bilaterally. ? ? Results Reviewed Results Reviewed: Laboratory Tests 01/01/23 08:27 WBC 6.2 Hgb 12.6 L ESR 7 Creatinine 1.01 AST 24 ALT 26 C-Reactive Protein 0.43 Laboratory Tests 05/01/23 05/01/23 05/01/23 10:00 10:00 10:00 WBC 4.7 L RBC 5.10 Hgb 13.6 L Hct 43.6 ESR 5 Creatinine 1.01 Estimated GFR > 60 AST 21 ALT 17 C-Reactive Protein 0.22 05/01/23 08/24/23 08/24/23 10:00 10:02 10:02 WBC 4.9 RBC 4.53 L Hgb 12.0 L Hct 38.3 L ESR 13 Creatinine 1.28 Estimated GFR 56 AST 25 ALT 24 C-Reactive Protein 0.17 Assessment & Plan Assessment & Plan (1) Long-term use of immunosuppressant medication: Code(s): Z79.899 - Other retail loan 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 assistant (current) drug therapy (2) Developmental delay, moderate: Comment: Non verbal Code(s): R62.50 - Unspecified lack of expected normal physiological development in childhood (3) Seropositive rheumatoid arthritis of multiple joints: Comment: Onset early 2017: RF, CCP positive with polyarticular involvement 10/02: Prednisone started 11/01: methotrexate added 03/04: Humira added 10/03: Xeljanz in place of Humira Code(s): M05.79 - Rheumatoid arthritis with rheumatoid factor of multiple sites without organ or systems involvement (4) 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 It does appear that his current regimen of Xeljanz 5 mg b.i.d. and methotrexate 20 mg q.week is adequately managing the rheumatoid arthritis. It is very difficult to confirm joint tenderness since he is not able to respond negatively or positively to pressure over the joints. He seems to be tolerating his medications so I think they should be continued. I did not observe any wincing or guarding during examination. #Failed skin graft bilateral feet (New): Patient was seen in the ER and was given antibiotics and dressing for dressing changes. He was not yet seen by his primary care or wound care. He did get a referral for Plastic surgery from the hospital. I recommend guardian that he contact primary care and also receive her referral for wound care during the weight for the plastic surgeon. I recommend that he complete the course of antibiotics and continue clean and dressed the wound as instructed by the ER doctor until he is evaluated by Wound Care or the plastic surgeon whichever comes 1st. The garden agrees with this plan and will follow through #Long-term use: His current labs looks good to continue the medications. He will have lab work before the next visit in about 4 months. The patient and his guardian are aware to hold the medications in the event of fevers, infections, nonhealing wounds are surgeries. They did hold methotrexate recently for a: Treatment with antibiotics. They were also instructed by the ER doctor to hold methotrexate for a week because of the skin graft failure. I discussed with patient and guardian that if oozing and redness and warmth comes from the area on his feet they should hold the medications. I spent 45 minutes reviewing history, evaluating an educating patient had guarding, and document. Follow-up in 4 months with labs 1 week before. Orders: Orders Erythrocyte Sedimentation Rate Today M05.79 - Rheumatoid arthritis with rheumatoid factor of multiple sites without organ or systems involvement, Z79.899 - Other [place] [facility] (current[facility] drug therapy C Reactive Protein Today M05.79 - Rheumatoid arthritis with rheumatoid factor of multiple sites without organ or systems involvement, Z79.899 - Other [place] [facility] (current[facility] drug therapy Comprehensive Met. Panel Today M05.79 - Rheumatoid arthritis with rheumatoid factor of multiple sites without organ or systems involvement, Z79.899 - Other retail loan originator assistant (current) drug therapy Complete Blood Count Auto Diff Today M05.79 - Rheumatoid arthritis with rheumatoid factor of multiple sites without organ or systems involvement, Z79.899 - Other retail loan originator assistant (current) drug therapy Coding Level of Care Code Est Pt Level 4 (92095) Diagnoses Long-term use of immunosuppressant medication Z79.899 Developmental delay, moderate R62.50 Seropositive rheumatoid arthritis of multiple joints M05.79 Skin graft failure T86.821
[2023-08-28 09:05] VITALS: BP 136/70; PULSE 67; TEMP 36.1; O2SAT 97; BMI 26.4
== END 2023-08-28 09:40 | disposition home or self-care (01) ==
PROVIDERS: PCP Internal Medicine; Visit Provider Nurse Practitioner Family
DX: Z79.899 Other long term (current) drug therapy (principal); R62.50 Unspecified lack of expected normal physiological development in childhood; M05.79 Rheumatoid arthritis with rheumatoid factor of multiple sites without organ or systems involvement; T86.821 Skin graft (allograft) (autograft) failure
CPT/HCPCS: 99214

== ENCOUNTER → 2023-08-28 08:43 | Outpatient (BNVA) | payer MEDICARE, OTHER, SELFPAY | PROVIDERS: PCP Internal Medicine; Visit Provider Nurse Practitioner Family | DX: M05.79 Rheumatoid arthritis with rheumatoid factor of multiple sites without organ or systems involvement (principal); T86.821 Skin graft (allograft) (autograft) failure; Z79.899 Other long term (current) drug therapy | CPT/HCPCS: 99212 ==

== ENCOUNTER 2023-12-30 09:34 | Outpatient (REF) | payer MEDICARE, OTHER, SELFPAY ==
[2023-12-30 09:50] LABS: MANUAL DIFF FLAG NO
[2023-12-30 10:38] LABS: Basophils Percent Auto 0.5 % (0-2); Eosinophils Absolute Auto 0.1 X10*3/uL (0.0-0.4); Eosinophils Percent Auto 0.8 % (0-4); Hematocrit 43.2 % (42.0-52.0); Hemoglobin 13.6 g/dl (14.0-18.0); Imm Gran Abs Auto 0.05 X10*3/uL (0.00-0.03); Imm Gran Pct Auto 0.8 % (0.0-0.4); Lymphocytes Absolute Auto 0.6 X10*3/uL (1.2-4.9); Lymphocytes Percent Auto 10.3 % (20-40); Mean Corpuscular HGB Conc 31.5 g/dl (31.0-36.0); Mean Corpuscular Hemoglobin 26.8 pg (27.0-33.0); Mean Corpuscular Volume 85.2 fL (80.0-98.0); Mean Platelet Volume 9.1 fL (9.4-12.4); Monocytes Absolute Auto 0.5 X10*3/uL (0.1-1.2); Monocytes Percent Auto 7.7 % (2-11); NRBC Pct Auto 0.3 /100WBC (0.0-0.2); Neutrophils Absolute Auto 4.9 x10*3/uL (2.0-8.3); Neutrophils Percent Auto 79.9 % (45-73); Platelet Count 207 X10*3/uL (160-400); Red Blood Count 5.07 X10*6/uL (4.60-5.80); Red Cell Distribution Width 15.7 % (11.0-16.0); White Blood Count 6.1 X10*3/uL (4.8-10.8)
[2023-12-30 11:09] LABS: Alanine Aminotransferase 25 U/L (0-40); Albumin Level 4.1 g/dL (3.5-5.0); Alkaline Phosphatase 71 U/L (39-117); Anion Gap 14 (12-20); Aspartate Amino Transferase 23 U/L (5-37); Bilirubin Total 0.5 mg/dL (0.0-1.0); Blood Urea Nitrogen 8 mg/dL (9-16); C Reactive Protein 0.39 mg/dL (< or = 0.50); Calcium 9.3 mg/dL (8.4-10.2); Carbon Dioxide 28 mmol/L (22-29); Chloride 106 mmol/L (96-108); Estimated Glomerular Filt Rate > 60; Glucose Random 112 mg/dL (60-115); Potassium 3.3 mmol/L (3.3-5.1); Sodium 145 mmol/L (135-145); Total Protein 7.5 g/dL (6.5-8.0)
[2023-12-30 11:19] LABS: HBS Num1 0.57 mIU/mL (0-7.99); HBc Num1 0.04 S/CO (0.00-0.79); HBsAGNum1 0.27 S/CO (0.00-0.99); Hepatitis A Antibody IgM 0.28 Index (0-0.79); Hepatitis B Core Antibody Nonreactive (Nonreactive); Hepatitis B Surface Antigen Negative (Negative); ~HepC Num1 0.09 S/CO (0.00-0.79); ~Hepatitis A Antibody IgM Nonreactive (Nonreactive); ~Hepatitis B Surface Antibody NONREACTIVE (Nonreactive); ~Hepatitis C Antibody Nonreactive (Nonreactive)
[2023-12-30 11:28] LABS: Erythrocyte Sedimentation Rate 5 MM/HR (0-15)
[2024-01-01 21:58] LABS: TS Negative Control Passed; TS Panel A 0; TS Panel B 0; TS Positive Control Passed; TSpotTB Negative (Negative)
== END 2023-12-30 09:35 | disposition home or self-care (01) ==
LOC: HO.LAB 09:34
PROVIDERS: PCP Internal Medicine; Visit Provider Student in an Organized Health Care Education/Training Program
DX: M05.79 Rheumatoid arthritis with rheumatoid factor of multiple sites without organ or systems involvement (principal); Z11.59 Encounter for screening for other viral diseases; Z11.7 Encounter for testing for latent tuberculosis infection
CPT/HCPCS: 36415; 80053; 85025; 85652; 86140; 86481; 86704; 86706; 86709; 86803; 87340

== ENCOUNTER 2024-01-17 14:37 | Outpatient (AMB) | payer MEDICARE, OTHER, SELFPAY ==
[2024-01-17 14:54] VITALS: BP 128/72; PULSE 72; O2SAT 98; BMI 26.6
--- NOTE | 2024-01-17 14:54 | A.OFFVIS_ITS ---
Vital Signs 01/17/24 14:54 Height 5 ft 7 in Weight 169 lb 15.622 oz BMI 26.6 BP 128/72 Blood Pressure Location Lt brachial Position Sitting Pulse 72 Pulse Source Pulse Oximeter Pulse Oximetry (%) 98 Oxygen Delivery Method Room Air Intake Visit Reasons: [place] moving very poorly/CM Intake Note: Patient is here with concern of moving very poorly. Accompanied by: Guardian Allergies No Known Allergies Allergy (Mild, Verified 01/17/24 14:57) NKA Medication List - Last Reconciled 01/17/24 by Padmaja Piña MD amlodipine 5 mg PO DAILY aripiprazole 5 mg PO DAILY cane As directed folic acid 1 mg PO DAILY methotrexate sodium 20 mg (8 x 2.5 mg) PO QWEEK multivitamin 1 tab PO DAILY prednisone 3 tabs daily for 5 days, 2 tabs daily for 5 days, 1 tab daily for 5 days then stop simvastatin 20 mg PO BEDTIME sulfamethoxazole-trimethoprim 800-160 mg 1 tab PO BID terbinafine HCl 250 mg PO DAILY tofacitinib (Xeljanz) 5 mg PO BID valsartan 160 mg PO DAILY HPI Comments Details: This is a 68-year-old male with seropositive RA and developmental delay who presents for follow-up. Per his guardian patient has not been doing well recently, moving slowly, more stiff. She mentions that he had a similar episode last year and was prescribed prednisone with improvement. He is compliant with his methotrexate and Xeljanz [facility] Medical History Skin graft failure Hip pain, bilateral Knee pain, bilateral Hypercholesteremia Surgical History Hx of skin graft Family History Mother Lung cancer Father History of agent [place] exposure Maternal Grandmother Myocardial infarct Social History Household Members Other:: lives with uncle Housing: House Alcohol intake: never Patient Tobacco Use Status: Never used Tobacco Review of Systems Const Unobtainable due to mental condition (Developmental delay) Physical Exam Vital Signs: Last Vital Signs Pulse 72 01/17/24 14:54 BP 128/72 08/02/24 14:54 Pulse Ox 98 01/17/24 14:54 Oxygen Delivery Method Room Air 01/17/24 14:54 BMI result Body Mass Index 26.6 Const Other: Developmental delay. Patient is pleasant General: cooperative, healthy appearing and comfortable Nutritional Appearance: overweight Limitations: no limitations HEENT Head: Yes normocephalic and Yes atraumatic Mouth: moist mucous membranes Resp Effort & Inspection: normal respiratory effort and able to speak in complete sentences Cardio Rate: regular rate Skin General skin exam: no rashes or lesions noted Extrem Other: No active synovitis both hands, wrists Negative MCP squeeze test bilaterally Negative straight leg raise test bilaterally Slightly limited flexion and extension of both knees but no obvious pain or tenderness elicited Assessment & Plan Assessment & Plan (1) Seropositive rheumatoid arthritis of multiple joints: Comment: Onset early 2017: RF, CCP positive with polyarticular involvement 10/02: Prednisone started 11/01: methotrexate added 03/04: Humira added 10/03: Xeljanz in place of Humira Code(s): M05.79 - Rheumatoid arthritis with rheumatoid factor of multiple sites without organ or systems involvement Category: Medical Plan: This is a 68-year-old male with seropositive RA and developmental delay who presents for follow-up. Per his guardian patient has been moving quite slowly over the last few weeks. States that when this last happened a year ago it was treated with a prednisone taper with good results. Exam I think some stiffness of his knees but I could not elicit significant tenderness and patient did not wince on exam, I think his symptoms are due to bilateral knee and possible hip arthritis. Likely degenerative arthritis. I will prescribe a short prednisone taper trial Continue methotrexate 20 mg weekly, folic acid 1 mg daily and Xeljanz 5 mg Twice daily Labs before next visit in 4 months (2) Long-term use of immunosuppressant medication: Code(s): Z79.899 - Other residential (current) drug therapy Category: Medical Plan: Monitor safety labs (3) Bilateral primary osteoarthritis of knee: Code(s): M17.0 - Bilateral primary osteoarthritis of knee Category: Medical Plan: Bilateral knee x-rays done last year showed mild bilateral osteoarthritis Plan I spent 30 minutes reviewing patient's chart, evaluating patient, ordering diagnostic workup, counseling patient's guardian and documenting in the chart Orders: Orders C Reactive Protein 4 Months M05.79 - Rheumatoid arthritis with rheumatoid factor of multiple sites without organ or systems involvement, Z79.899 - Other residential (current) drug therapy Complete Blood Count Auto Diff 4 Months M05.79 - Rheumatoid arthritis with rheumatoid factor of multiple sites without organ or systems involvement, Z79.899 - Other residential (current) drug therapy Comprehensive Met. Panel 4 Months M05.79 - Rheumatoid arthritis with rheumatoid factor of multiple sites without organ or systems involvement, Z79.899 - Other residential (current) drug therapy Erythrocyte Sedimentation Rate 4 Months M05.79 - Rheumatoid arthritis with rheumatoid factor of multiple sites without organ or systems involvement, Z79.899 - Other vermin exterminator (current) drug therapy Medications: Changed From prednisone Three tablets once a day for 3 days, 2 tablets once a day for 3 days, then 1 tablet once a day for 3 days. 18 tabs 0RF To prednisone 3 tabs daily for 5 days, 2 tabs daily for 5 days, 1 tab daily for 5 days then stop 30 tabs 0RF Coding Level of Care Code Est Pt Level 4 (45790) Diagnoses Seropositive rheumatoid arthritis of multiple joints M05.79 Long-term use of immunosuppressant medication Z79.899 Bilateral primary osteoarthritis of knee M17.0
== END 2024-01-17 15:51 | disposition home or self-care (01) ==
PROVIDERS: PCP Internal Medicine; Visit Provider Student in an Organized Health Care Education/Training Program
DX: M05.79 Rheumatoid arthritis with rheumatoid factor of multiple sites without organ or systems involvement (principal); Z79.899 Other long term (current) drug therapy; M17.0 Bilateral primary osteoarthritis of knee
CPT/HCPCS: 99214

== ENCOUNTER → 2024-01-17 14:37 | Outpatient (BNVA) | payer MEDICARE, OTHER, SELFPAY | PROVIDERS: PCP Internal Medicine; Visit Provider Student in an Organized Health Care Education/Training Program | DX: M05.79 Rheumatoid arthritis with rheumatoid factor of multiple sites without organ or systems involvement (principal); M17.0 Bilateral primary osteoarthritis of knee; Z79.899 Other long term (current) drug therapy | CPT/HCPCS: 99212 ==

== ENCOUNTER 2024-03-19 15:52 | Outpatient (AMB) | payer MEDICARE, OTHER, SELFPAY ==
--- NOTE | 2024-03-19 16:00 | A.OFFVIS_ITS ---
Vital Signs 03/19/24 16:01 Height 5 ft 7 in Weight 169 lb BMI 26.5 BP 128/72 Blood Pressure Location Lt brachial Position Sitting Pulse 75 Pulse Source Pulse Oximeter Pulse Oximetry (%) 100 Oxygen Delivery Method Room Air Intake Visit Reasons: Very stiff, hardly moving, off balance Intake Note: Patient is stiff , hardly moving, off balance, flare up all over his body. Allergies No Known Allergies Allergy (Mild, Verified 03/19/24 16:02) NKA Medication List - Last Reconciled 03/19/24 by Padmaja Piña MD amlodipine 5 mg PO DAILY aripiprazole 5 mg PO DAILY cane As directed folic acid 1 mg PO DAILY methotrexate sodium 20 mg (8 x 2.5 mg) PO QWEEK multivitamin 1 tab PO DAILY simvastatin 20 mg PO BEDTIME sulfamethoxazole-trimethoprim 800-160 mg 1 tab PO BID terbinafine HCl 250 mg PO DAILY tofacitinib (Xeljanz) 5 mg PO BID trazodone 50 mg PO DAILY valsartan 160 mg PO DAILY HPI Comments Details: This is a 68-year-old male with seropositive RA and developmental delay who presents for follow-up. Per his nurse patient has not been doing well recently, moving slowly, more stiff. He was having similar symptoms last visit, prednisone taper was prescribed, according to nurse it gave him relief. He is compliant with his methotrexate and Xeljanz [facility] Medical History Skin graft failure Hip pain, bilateral Knee pain, bilateral Hypercholesteremia Surgical History Hx of skin graft Family History Mother Lung cancer Father History of agent [place] exposure Maternal Grandmother Myocardial infarct Social History Household Members Other:: lives with uncle Housing: House Alcohol intake: never Patient Tobacco Use Status: Never used Tobacco Review of Systems Const Unobtainable due to mental condition (Developmental delay) Physical Exam Vital Signs: Last Vital Signs Pulse 75 03/19/24 16:01 BP 128/72 03/19/24 16:01 Pulse Ox 100 03/19/24 16:01 Oxygen Delivery Method Room Air 03/19/24 16:01 BMI result Body Mass Index 26.5 Const Other: Developmental delay. Patient is pleasant General: cooperative, healthy appearing and comfortable Nutritional Appearance: overweight Limitations: no limitations HEENT Head: Yes normocephalic and Yes atraumatic Mouth: moist mucous membranes Resp Effort & Inspection: normal respiratory effort and able to speak in complete sentences Cardio Rate: regular rate Skin General skin exam: no rashes or lesions noted Extrem Other: No active synovitis both hands, wrists Negative MCP squeeze test bilaterally Negative straight leg raise test bilaterally Slightly limited flexion and extension of both knees, some discomfort with flexion and extension No knee swelling or warmth bilaterally Bilateral lower limb pitting edema Assessment & Plan Assessment & Plan (1) Seropositive rheumatoid arthritis of multiple joints: Comment: Onset early 2017: RF, CCP positive with polyarticular involvement 10/02: Prednisone started 11/01: methotrexate added 03/04: Humira added 10/03: Xeljanz in place of Humira Code(s): M05.79 - Rheumatoid arthritis with rheumatoid factor of multiple sites without organ or systems involvement Category: Medical Plan: This is a 68-year-old male with seropositive RA and developmental delay who presents for follow-up. Per his guardian patient has been more slow and stiff. They believe it is due to bilateral knee pain. Last visit I prescribed him a prednisone taper. His cardiac states that patient had improvement. Exam however there is no knee swelling or warmth, there is some discomfort with flexion and extension, I think this is likely due to generalized osteoarthritis rather than active RA as there is no other joint involvement and the knee is not warm or swollen will check bilateral knee x-rays I will prescribe a short prednisone taper trial Continue methotrexate 20 mg weekly, folic acid 1 mg daily and Xeljanz 5 mg Twice daily Labs before next visit in 2 months (2) Long-term use of immunosuppressant medication: Code(s): Z79.899 - Other intermodal customer service (current) drug therapy Category: Medical Plan: Monitor safety labs (3) Bilateral primary osteoarthritis of knee: Code(s): M17.0 - Bilateral primary osteoarthritis of knee Category: Medical Plan: Check repeat bilateral knee x-rays. Attempt physical therapy for both knees Apply Voltaren gel with both knees 4 times a day Continue with Tylenol If there is no improvement, can consider bilateral knee cortisone injections. Also a low-dose prednisone long-term can be considered (4) Bilateral leg edema: Code(s): R60.0 - Localized edema Category: Medical Plan: Discussed with guardian, can be related to amlodipine. Follow-up with PCP to rule out other causes of peripheral edema Plan I spent 30 minutes reviewing patient's chart, evaluating patient, ordering diagnostic workup, counseling patient's guardian and documenting in the chart Orders: Orders XR knee RT 3V Today M17.0 - Bilateral primary osteoarthritis of knee XR knee standing BI Today M17.0 - Bilateral primary osteoarthritis of knee XR knee LT 3V Today M17.0 - Bilateral primary osteoarthritis of knee Hemoglobin A1c 2 Months E11.9 - Type 2 diabetes mellitus without complications Coding Level of Care Code Est Pt Level 4 (62416) Diagnoses Seropositive rheumatoid arthritis of multiple joints M05.79 Long-term use of immunosuppressant medication Z79.899 Bilateral primary osteoarthritis of knee M17.0 Bilateral leg edema R60.0
[2024-03-19 16:01] VITALS: BP 128/72; PULSE 75; O2SAT 100; BMI 26.5
== END 2024-03-19 16:29 | disposition home or self-care (01) ==
PROVIDERS: PCP Internal Medicine; Visit Provider Student in an Organized Health Care Education/Training Program
DX: M05.79 Rheumatoid arthritis with rheumatoid factor of multiple sites without organ or systems involvement (principal); Z79.899 Other long term (current) drug therapy; M17.0 Bilateral primary osteoarthritis of knee; R60.0 Localized edema
CPT/HCPCS: 99214

== ENCOUNTER → 2024-03-19 15:52 | Outpatient (BNVA) | payer MEDICARE, OTHER, SELFPAY | PROVIDERS: PCP Internal Medicine; Visit Provider Student in an Organized Health Care Education/Training Program | DX: M05.79 Rheumatoid arthritis with rheumatoid factor of multiple sites without organ or systems involvement (principal); M17.0 Bilateral primary osteoarthritis of knee; R60.0 Localized edema; Z79.899 Other long term (current) drug therapy | CPT/HCPCS: 99212 ==

== ENCOUNTER 2024-05-18 10:06 | Outpatient (AMB) | payer MEDICARE, OTHER, SELFPAY ==
--- NOTE | 2024-05-18 10:07 | MHC.OFFVIS ---
Vital Signs 05/18/24 10:13 Height 5 ft 7 in BMI Reason not done Patient refused/unable Pulse 85 Pulse Source Pulse Oximeter Pulse Oximetry (%) 98 Oxygen Delivery Method Room Air Comment Patient refused to take blood pressure. Intake Visit Reasons: RA/CM Intake Note: Patient presents for RA. Allergies No Known Allergies Allergy (Mild, Verified 05/18/24 10:13) NKA Medication List - Last Reconciled 05/18/24 by Padmaja Piña MD amlodipine 5 mg PO DAILY aripiprazole 5 mg PO DAILY cane As directed folic acid 1 mg PO DAILY insulin syringe-needle U-100 (BD Insulin Syringe Ultra-Fine) As directed methotrexate sodium 25 mg subcut QWEEK multivitamin 1 tab PO DAILY simvastatin 20 mg PO BEDTIME sulfamethoxazole-trimethoprim 800-160 mg 1 tab PO BID terbinafine HCl 250 mg PO DAILY tofacitinib (Xeljanz) 5 mg PO BID trazodone 50 mg PO DAILY valsartan 160 mg PO DAILY HPI Comments Details: This is a 68-year-old male with seropositive RA and developmental delay who presents for follow-up. Per his nurse patient has not been doing well recently, moving slowly, more stiff. Knees giving out on him. Had 3 falls, non that were significant. Knee pain did not improve with Voltaren gel or Tylenol. Compliant with methotrexate and Xeljanz [facility] Medical History Skin graft failure Hip pain, bilateral Knee pain, bilateral Hypercholesteremia Surgical History Hx of skin graft Family History Mother Lung cancer Father History of agent [place] exposure Maternal Grandmother Myocardial infarct Social History Household Members Other:: lives with uncle Housing: House Alcohol intake: never Patient Tobacco Use Status: Never used Tobacco Review of Systems Const Unobtainable due to mental condition (Developmental delay) Physical Exam Vital Signs: Last Vital Signs Pulse 85 05/18/24 10:13 Pulse Ox 98 05/18/24 10:13 Oxygen Delivery Method Room Air 05/18/24 10:13 Const Other: Developmental delay. Patient is pleasant General: cooperative, healthy appearing and comfortable Nutritional Appearance: overweight Limitations: no limitations HEENT Head: Yes normocephalic and Yes atraumatic Mouth: moist mucous membranes Resp Effort & Inspection: normal respiratory effort and able to speak in complete sentences Cardio Rate: regular rate Skin General skin exam: no rashes or lesions noted Extrem Other: Synovial thickening of right 3rd MCP, mildly swollen but no significant tenderness Left 3rd MCP synovial thickening, no tenderness but positive MCP squeeze test on the left Right knee warmth without any significant swelling, bilateral knee pain with flexion-extension Negative straight leg raise test bilaterally Bilateral lower limb pitting edema Assessment & Plan Assessment & Plan (1) Seropositive rheumatoid arthritis of multiple joints: Comment: Onset early 2017: RF, CCP positive with polyarticular involvement 10/02: Prednisone started 11/01: methotrexate added 03/04: Humira added 10/03: Xeljanz in place of Humira Code(s): M05.79 - Rheumatoid arthritis with rheumatoid factor of multiple sites without organ or systems involvement Category: Medical Plan: This is a 68-year-old male with seropositive RA and developmental delay who presents for follow-up. Per his guardian patient has been more slow and stiff. They believe it is due to bilateral knee pain. On exam he has some synovial thickening of his MCPs, positive MCP squeeze test left hand. Right knee is warm. I think his bilateral knee pain is largely due to bilateral knee osteoarthritis. 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 Check bilateral knee x-rays. Referred patient to orthopedics Plan I spent 30 minutes reviewing patient's chart, evaluating patient, ordering diagnostic workup, counseling patient's guardian and documenting in the chart Orders: Orders Erythrocyte Sedimentation Rate 3 Months M05.79 - Rheumatoid arthritis with rheumatoid factor of multiple sites without organ or systems involvement Complete Blood Count Auto Diff 3 Months M05.79 - Rheumatoid arthritis with rheumatoid factor of multiple sites without organ or systems involvement Comprehensive Met. Panel 3 Months M05.79 - Rheumatoid arthritis with rheumatoid factor of multiple sites without organ or systems involvement C Reactive Protein 3 Months M05.79 - Rheumatoid arthritis with rheumatoid factor of multiple sites without organ or systems involvement Referrals Orthopedics Referral M17.0 - Bilateral primary osteoarthritis of knee Medications: New methotrexate sodium 25 mg subcut QWEEK 10 mL 3RF insulin syringe-needle U-100 (BD Insulin Syringe Ultra-Fine) As directed 10 ea 2RF Discontinued methotrexate sodium Discontinued Reason: Doctor's Order 20 mg (8 x 2.5 mg) PO QWEEK 96 tabs 0RF M05.9 - Rheumatoid arthritis with rheumatoid factor, unspecified Coding Level of Care Code Est Pt Level 4 (55587) Complex EM visit Add On G2211 Diagnoses Seropositive rheumatoid arthritis of multiple joints M05.79 Long-term use of immunosuppressant medication Z79.899 Bilateral primary osteoarthritis of knee M17.0
[2024-05-18 10:13] VITALS: PULSE 85; O2SAT 98
== END 2024-05-18 10:40 | disposition home or self-care (01) ==
PROVIDERS: PCP Internal Medicine; Visit Provider Student in an Organized Health Care Education/Training Program
DX: M05.79 Rheumatoid arthritis with rheumatoid factor of multiple sites without organ or systems involvement (principal); Z79.899 Other long term (current) drug therapy; M17.0 Bilateral primary osteoarthritis of knee
CPT/HCPCS: 99214; G2211

== ENCOUNTER 2024-05-18 10:06 | Outpatient (REF) | payer MEDICARE, OTHER, SELFPAY ==
[2024-05-18 11:02] LABS: MANUAL DIFF FLAG NO
[2024-05-18 11:53] LABS: Basophils Percent Auto 0.2 % (0-2); Eosinophils Absolute Auto 0.1 X10*3/uL (0.0-0.4); Eosinophils Percent Auto 1.3 % (0-4); Hematocrit 33.7 % (42.0-52.0); Hemoglobin 10.6 g/dl (14.0-18.0); Imm Gran Abs Auto 0.06 X10*3/uL (0.00-0.03); Imm Gran Pct Auto 0.6 % (0.0-0.4); Lymphocytes Absolute Auto 0.7 X10*3/uL (1.2-4.9); Mean Corpuscular HGB Conc 31.5 g/dl (31.0-36.0); Mean Corpuscular Hemoglobin 25.4 pg (27.0-33.0); Mean Corpuscular Volume 80.6 fL (80.0-98.0); Mean Platelet Volume 9.2 fL (9.4-12.4); Monocytes Absolute Auto 0.6 X10*3/uL (0.1-1.2); Monocytes Percent Auto 6.2 % (2-11); Neutrophils Percent Auto 84.7 % (45-73); Platelet Count 306 X10*3/uL (160-400); Red Blood Count 4.18 X10*6/uL (4.60-5.80); Red Cell Distribution Width 16.1 % (11.0-16.0); White Blood Count 9.5 X10*3/uL (4.8-10.8)
[2024-05-18 12:01] LABS: Estimated Average Glucose 103 mg/dL; Hemoglobin A1C 89.3011 umol/L; Hemoglobin A1c % 5.2 % (<6.0); Total Hemoglobin (HGBA1C) 2690.0325 umol/L
[2024-05-18 12:19] LABS: Alanine Aminotransferase 13 U/L (0-40); Albumin Level 3.2 g/dL (3.5-5.0); Alkaline Phosphatase 70 U/L (39-117); Anion Gap 8 (12-20); Aspartate Amino Transferase 27 U/L (5-37); Bilirubin Total 0.4 mg/dL (0.0-1.0); Blood Urea Nitrogen 8 mg/dL (9-16); Calcium 8.7 mg/dL (8.4-10.2); Carbon Dioxide 29 mmol/L (22-29); Chloride 105 mmol/L (96-108); Estimated Glomerular Filt Rate > 60; Glucose Random 106 mg/dL (60-115); Potassium 3.6 mmol/L (3.3-5.1); Sodium 138 mmol/L (135-145); Total Protein 7.8 g/dL (6.5-8.0)
[2024-05-18 12:30] LABS: Erythrocyte Sedimentation Rate 74 MM/HR (0-15)
== END 2024-05-18 10:07 | disposition home or self-care (01) ==
LOC: HO.XRAY 10:06
PROVIDERS: PCP Internal Medicine; Visit Provider Student in an Organized Health Care Education/Training Program
DX: M05.79 Rheumatoid arthritis with rheumatoid factor of multiple sites without organ or systems involvement (principal); E11.9 Type 2 diabetes mellitus without complications; Z79.899 Other long term (current) drug therapy; M17.0 Bilateral primary osteoarthritis of knee
CPT/HCPCS: 36415; 73564; 80053; 83036; 85025; 85652; 86140; 99212